=== PATIENT | male | born 1965 | race Caucasian/White ===

== ENCOUNTER → 2023-07-22 08:42 | Outpatient (REF) | payer BC, SELFPAY ==
[2023-07-22 09:37] LABS: INR 1.19
== END ==
LOC: REG 08:42
PROVIDERS: ATTENDING PHYSICIAN Internal Medicine Cardiovascular Disease; FAMILY PHYSICIAN Family Medicine
DX: Z95.2 Presence of prosthetic heart valve (principal)
CPT/HCPCS: 36415; 85610

== ENCOUNTER → 2023-07-28 08:51 | Outpatient (REF) | payer BC, SELFPAY ==
[2023-07-28 10:11] LABS: INR 2.44; PT 26.8 Sec (11.4-14.6)
== END ==
LOC: REG 08:51
PROVIDERS: ATTENDING PHYSICIAN Internal Medicine Cardiovascular Disease; FAMILY PHYSICIAN Family Medicine; REFERRING PHYSICIAN Surgery
DX: Z95.2 Presence of prosthetic heart valve (principal)
CPT/HCPCS: 36415; 85610

== ENCOUNTER → 2023-08-22 08:52 | Outpatient (REF) | payer BC, SELFPAY ==
[2023-08-22 09:38] LABS: INR 2.34; PT 25.5 Sec (11.4-14.6)
== END ==
LOC: REG 08:52
PROVIDERS: ATTENDING PHYSICIAN Internal Medicine Cardiovascular Disease; FAMILY PHYSICIAN Family Medicine
DX: Z95.2 Presence of prosthetic heart valve (principal)
CPT/HCPCS: 36415; 85610

== ENCOUNTER → 2023-11-18 06:54 | Outpatient (REF) | payer BC, SELFPAY ==
[2023-11-18 07:51] LABS: INR 2.74
== END ==
LOC: REG 06:54
PROVIDERS: ATTENDING PHYSICIAN Internal Medicine Cardiovascular Disease
DX: Z95.2 Presence of prosthetic heart valve (principal)
CPT/HCPCS: 36415; 85610

== ENCOUNTER → 2024-07-10 15:22 | Outpatient (REF) | payer BC, SELFPAY | LOC: HWRCS 15:22 | PROVIDERS: ATTENDING PHYSICIAN Internal Medicine Cardiovascular Disease; FAMILY PHYSICIAN Family Medicine | DX: Z95.2 Presence of prosthetic heart valve (principal) | CPT/HCPCS: 93306 ==

== ENCOUNTER → 2025-01-28 06:42 | Outpatient (REF) | payer BC, SELFPAY ==
[2025-01-28 07:41] LABS: INR 1.42; PT 17.6 Sec (11.4-14.6)
== END ==
LOC: REG 06:42
PROVIDERS: ATTENDING PHYSICIAN Internal Medicine Cardiovascular Disease
DX: Z95.2 Presence of prosthetic heart valve (principal)
CPT/HCPCS: 36415; 85610

== ENCOUNTER → 2025-01-30 07:38 | Outpatient (REF) | payer BC, SELFPAY ==
[2025-01-30 08:26] LABS: INR 1.91; PT 22.3 Sec (11.4-14.6)
== END ==
LOC: REG 07:38
PROVIDERS: ATTENDING PHYSICIAN Internal Medicine Cardiovascular Disease; FAMILY PHYSICIAN Family Medicine
DX: Z95.2 Presence of prosthetic heart valve (principal)
CPT/HCPCS: 36415; 85610

== ENCOUNTER → 2025-02-01 07:05 | Outpatient (REF) | payer BC, SELFPAY ==
[2025-02-01 08:10] LABS: INR 2.48; PT 26.9 Sec (11.4-14.6)
== END ==
LOC: REG 07:05
PROVIDERS: ATTENDING PHYSICIAN Internal Medicine Cardiovascular Disease; FAMILY PHYSICIAN Family Medicine
DX: Z95.2 Presence of prosthetic heart valve (principal)
CPT/HCPCS: 36415; 85610

== ENCOUNTER → 2025-02-04 06:51 | Outpatient (REF) | payer BC, SELFPAY ==
[2025-02-04 07:42] LABS: INR 2.03; PT 23.1 Sec (11.4-14.6)
== END ==
LOC: REG 06:51
PROVIDERS: ATTENDING PHYSICIAN Internal Medicine Cardiovascular Disease; FAMILY PHYSICIAN Family Medicine
DX: Z95.2 Presence of prosthetic heart valve (principal)
CPT/HCPCS: 36415; 85610

== ENCOUNTER → 2025-02-08 06:59 | Outpatient (REF) | payer BC, SELFPAY ==
[2025-02-08 07:51] LABS: INR 3.94; PT 38.1 Sec (11.4-14.6)
== END ==
LOC: REG 06:59
PROVIDERS: ATTENDING PHYSICIAN Internal Medicine Cardiovascular Disease; FAMILY PHYSICIAN Family Medicine
DX: Z95.2 Presence of prosthetic heart valve (principal)
CPT/HCPCS: 36415; 85610

== ENCOUNTER → 2025-02-11 06:59 | Outpatient (REF) | payer BC, SELFPAY ==
[2025-02-11 07:59] LABS: INR 2.13; PT 24.0 Sec (11.4-14.6)
== END ==
LOC: REG 06:59
PROVIDERS: ATTENDING PHYSICIAN Internal Medicine Cardiovascular Disease
DX: Z95.2 Presence of prosthetic heart valve (principal)
CPT/HCPCS: 36415; 85610

== ENCOUNTER → 2025-02-25 07:09 | Outpatient (REF) | payer BC, SELFPAY ==
[2025-02-25 08:08] LABS: INR 3.46; PT 34.6 Sec (11.4-14.6)
== END ==
LOC: REG 07:09
PROVIDERS: ATTENDING PHYSICIAN Internal Medicine Cardiovascular Disease
DX: Z95.2 Presence of prosthetic heart valve (principal)
CPT/HCPCS: 36415; 85610